=== PATIENT | male | born 1970 | race Hispanic/Latino ===

== ENCOUNTER → 2017-12-06 | Outpatient (CLI) | payer MEDICARE, OTHER | END | disposition home or self-care (01) | LOC: GMAM 15:14 | PROVIDERS: ATTEND Family Medicine | DX: Z12.5 Encounter for screening for malignant neoplasm of prostate (principal) ==

== ENCOUNTER → 2017-12-11 | Outpatient (CLI) | payer MEDICARE, OTHER | END | disposition home or self-care (01) | LOC: GMAM 12:17 | PROVIDERS: ATTEND Family Medicine | DX: R53.83 Other fatigue (principal) ==

== ENCOUNTER → 2018-04-08 | Outpatient (CLI) | payer MEDICARE, OTHER | LOC: GMAM 11:30 | PROVIDERS: ATTEND Family Medicine | DX: E29.1 Testicular hypofunction (principal) ==

== ENCOUNTER → 2018-06-17 | Outpatient (CLI) | payer MEDICARE, OTHER | LOC: GMAM 16:43 | PROVIDERS: ATTEND Family Medicine | DX: R10.9 Unspecified abdominal pain (principal) ==

== ENCOUNTER → 2018-06-19 | Outpatient (CLI) | payer MEDICARE, OTHER ==
--- NOTE | 2018-06-19 11:42 | CT ---
EXAM DESCRIPTION: Abdomen/Pelvis w/wo Contrast: Computed Tomography. CLINICAL HISTORY: ABD PAIN. Nausea and hernia. COMPARISON: Ultrasound gallbladder on the same visit. TECHNIQUE: Spiral-axial scans at 5 x 5 mm intervals through the abdomen and pelvis before and after standard dose nonionic IV contrast. No oral contrast. Coronal and sagittal 2.0 mm reconstructions. 5 mm Delayed helical-axial scans, liver through the pubic symphysis. No adverse reactions. Total Exam DLP 3363.39 mGy - cm. This exam was performed according to our departmental CT dose-optimization program which includes automated exposure control, adjustment of the mA and/or kV according to patient size and/or use of iterative reconstruction technique; to reduce radiation dose to as low as reasonably achievable (ALARA). FINDINGS: Lung bases and pleura: Multiple bilateral fluffy groundglass densities which may be associated with the fissures and other septations. Possibly solid nodule in the left lower lobe. Liver, Stomach, Spleen, Adrenal Glands: Small hiatal hernia in the stomach with no distention. Other solid organs are negative. Pancreas, Gallbladder, Ducts: Gallbladder visualized. Duct and pancreas negative. Kidneys and Ureters: Unremarkable. Mesentery: Negative. Aorta: Minimal atherosclerotic calcification proximal common iliac arteries. Small Bowel: Unremarkable. Terminal Ileum/Cecum: Negative. Normal caliber of the appendix. Normal surrounding fatty density. Colon: Diffuse fecal material but no significant distention. Pelvic Organs: Prostate gland with minimal impression on the base of the urinary bladder. Borderline wall thickening. No free fluid. Spine and Bony Pelvis: Anterior osteophytes thoracic spine and at L3-4 and L4-5. Abdominal Wall/Back Soft Tissues: No inguinal hernia or abdominal wall hernia is visualized, but there is protrusion of fat anteriorly, abutting the midline raphe below the xiphoid process. IMPRESSION: 1. Anterior midline protrusion of abdominal fat posterior to the midline raphe, inferior to the xiphoid process. Does not contain bowel. 2. Small gastric hiatal hernia. 3. Multiple bilateral groundglass nodules in the lung bases with a solid nodule in the left lower lobe 5 to 6 mm diameter. Recommend follow-up chest and lung CT scan with IV contrast. 4. Borderline urinary bladder wall thickening with prostate gland abutting the base. Consider PSA serial measurements if not previously done. Electronically signed by: Martell Green MD 06/19/2018 11:40 AM CDT
--- NOTE | 2018-06-19 14:41 | US ---
EXAM DESCRIPTION: Gall Bladder: ULTRASOUND. CLINICAL HISTORY: ABD PAIN COMPARISON: CT scan of the abdomen and pelvis on this visit. TECHNIQUE: Transabdominal scanning: Santa-scale and Doppler modes. FINDINGS: Gallbladder: normal size, shape, echogenicity; no intraluminal stones or sludge. No fluid around the gallbladder. No wall thickening. 1.8 mm. Non-tender with transducer pressure. Common bile duct: caliber 4.2 mm within normal limits. Liver: Increased echogenicity; contour liver capsule smooth where seen. No fluid around the liver. Intrahepatic biliary ducts normal caliber. Doppler hepatopedal flow portal vein.. 8.2 mm diameter normal caliber. Long axis right lobe 15.2 cm. Pancreas: normal size and echogenicity. Duct not seen. 10.5 cm long axis right kidney. Normal cortical thickness and echogenicity. No hydronephrosis or perinephric fluid. 7 x 7 x 5 mm anechoic cyst near the renal pelvis. IMPRESSION: 1. Fatty infiltration/steatosis of the liver with normal ducts. No focal lesions. Normal vascularity. Smooth capsule with no ascites and normal size. 2. Gallbladder is unremarkable with no stones or sludge. No wall thickness or fluid around the wall. Nontender with transducer pressure. Normal caliber of the common bile duct. 3. Pancreas right kidney are unremarkable on ultrasound, except for a 7 mm cyst in the kidney. Electronically signed by: Martell Green MD 06/19/2018 2:40 PM CDT
== END ==
LOC: CT 09:00
PROVIDERS: ATTEND Family Medicine
DX: K44.9 Diaphragmatic hernia without obstruction or gangrene (principal); R91.8 Other nonspecific abnormal finding of lung field; K76.0 Fatty (change of) liver, not elsewhere classified; N28.1 Cyst of kidney, acquired; R10.9 Unspecified abdominal pain

== ENCOUNTER → 2018-07-03 | Outpatient (CLI) | payer MEDICARE, OTHER ==
--- NOTE | 2018-07-03 11:00 | MRI ---
EXAM DESCRIPTION: Cervical Spine: MRI. CLINICAL HISTORY: NECK PAIN COMPARISON: Cervical TECHNIQUE: Multiplanar MRI, multiple sequences, non-contrast High-field.. Minimal image degradation due to size of the body part. FINDINGS: C3-4: Minimal disc desiccation. No significant bulging. Canal and bilateral foramina are patent. Facets are negative. C4-5: Minimal disc desiccation and minimal disc space loss. Posterior broad-based 2 mm disc bulge. Bilateral moderate neural foraminal narrowing more on the right than left. Facets are unremarkable. C5-6: Minimal disc desiccation and minimal disc space loss. Tiny posterior bulge. Bilateral uncinate spurs. Right neural foraminal stenosis. Mild to moderate left neural foraminal narrowing. Mild canal narrowing. C6-7: Minimal disc desiccation. Disc space preserved. Right uncinate spur and mild neural foraminal narrowing. Left neuroforamen and canal patent. Normal signal in the remaining discs with no bulging. Disc spaces preserved. Canal and neural foramina are patent. Facets unremarkable. Spinal alignment is kyphotic C2- C6. No cord compression or cord edema. Atlantoaxial joint with minimal hypertrophy. Base of the cerebellar tonsils is at the level of the foramen magnum. Paravertebral soft tissues negative. Vertebral bodies are not compressed at any level. Normal marrow signal in the remaining vertebral bodies and the posterior elements. IMPRESSION: 1. C5-6 disc desiccation and small posterior bulge. Right neural foraminal stenosis. Correlate for right C6 radiculopathy. Canal is narrowed. 2. Bilateral moderate neural foraminal narrowing at C4-5 more on the right. Posterior broad-based disc bulge. 3. Right uncinate spur at C6-7 with mild neural foraminal narrowing. Electronically signed by: Martell Green MD 07/03/2018 10:59 AM CDT
--- NOTE | 2018-07-03 12:37 | CT ---
EXAM DESCRIPTION: Chest w/Contrast : Computed Tomography. CLINICAL HISTORY: NODULE, pulmonary. Abnormal findings in the lungs on previous CT scan of the abdomen.. COMPARISON: CT scan of abdomen and pelvis 06/19/2018. TECHNIQUE: Spiral-axial scans at 5 x 5 mm intervals through the lungs and thorax with IV contrast. 2.5 x 5 mm lung algorithm axial reconstructions. 2.0 Mm reconstructions. No adverse reactions. Total Exam DLP: 891.03 mGy-cm. This exam was performed according to our departmental dose-optimization program which includes automated exposure control, adjustment of the mA and/or kV according to patient size and/or use of iterative reconstruction technique; to reduce radiation dose to as low as reasonably achievable (ALARA). Nodules or masses with mean diameter 10 mm or less are recorded, based upon measurements in all 3 axes. FINDINGS: Lungs and airways: Nonspecific groundglass densities, and nodules less than 3 mm in diameter are noted abutting the inferior right major fissure in the right middle lobe. Patchy groundglass infiltrate, widest diameter 3 cm, in the lateral right lower lobe near the base abutting the posterior right hemidiaphragm pleura. Multiple solid solid and groundglass nodules are visible on the lung window axial sequence 4, from image 84 inferior to image 107. In the right lower lobe in subpleural location ranging in size from 3 mm to 8 mm. In the left lower lobe, subpleural groundglass infiltrate 4 mm on lung window axial sequence 4, image 98. Slightly more superior is a solid nodule measuring 7 mm on image 94. Smaller subpleural groundglass densities also seen in the right upper lobe and in the inferior lingula. Groundglass nodule abutting the pleura in the lower lingula on image 71, measuring 6 mm. Eloise and mediastinum: Upper mediastinum unremarkable at the thoracic inlet but at the level of the brachiocephalic vessels, multiple mediastinal nodes are present. Pretracheal nodes less than 1 cm. Short axis azygous node 1.3 cm. Short axis AP window node 1.1 cm with multiple other smaller nodes. 1 cm node superior to the left main bronchus. Cluster of nodes in the superior right hilum, short axes 1.7 cm. Inferior to the right upper lobe bronchus, 1.3 cm. Superior and lateral to the bronchus intermedius, short axis node 1.6 cm with crenulated margins. Right hilar lymph node abutting the right lower lobe bronchus 1.3 cm short axis. Short axis subcarinal node 1.3 cm.: Largest lymph nodes in the left hilum similar to the right. Great vessels: No atherosclerotic calcifications or aneurysms. Soft tissues of the neck base, chest wall, and axilla. No soft tissue masses or enlarged lymph nodes. Thyroid gland with uniform enhancement. Upper abdomen. Protrusion of abdominal fat in the midline just below the xiphoid process not containing bowel. Small gastric hiatal hernia. Included peritoneal space unremarkable. Stable since the prior study. Osseous structures: Narrowing of some of the thoracic foramina. Anterior spurs at some disc spaces. Minimal arthrosis bilateral glenohumeral joints. No blastic or lytic lesions. IMPRESSION: 1. Patchy groundglass densities and nodules in the bilateral lung bases more on the right. Small semisolid nodules on the right. Solid nodule with mean diameter 7 mm in the left lower lobe and groundglass nodule in the inferior lingula measuring 6 mm. Diffuse mediastinal and bilateral hilar adenopathy. No abdominal or pelvic adenopathy on recent CT scan. Differential includes atypical bacterial pneumonia, fungal pneumonia, sarcoidosis, metastasis, viral infection, or non-TB mycobacteria, or primary TB. No dominant pulmonary mass. Less likely lymphoma with no involvement of the neck or abdomen. Consider [address] follow-up with IV contrast, and/or PET scan. Pulmonology consult, sputum cultures, and bronchoscopic guided transbronchial biopsy. Electronically signed by: Martell Green MD 07/03/2018 12:35 PM CDT
== END ==
LOC: MRI 09:00
PROVIDERS: ATTEND Family Medicine
DX: M54.2 Cervicalgia (principal); R91.1 Solitary pulmonary nodule; M50.321 Other cervical disc degeneration at C4-C5 level; M50.322 Other cervical disc degeneration at C5-C6 level

== ENCOUNTER → 2018-07-09 | Outpatient (CLI) | payer MEDICARE, OTHER | LOC: GMAM 14:30 | PROVIDERS: ATTEND Family Medicine | DX: R94.5 Abnormal results of liver function studies (principal); K76.0 Fatty (change of) liver, not elsewhere classified; R10.9 Unspecified abdominal pain ==

== ENCOUNTER → 2018-07-12 | Outpatient (CLI) | payer MEDICARE, OTHER ==
--- NOTE | 2018-07-12 12:45 | MRI ---
EXAM DESCRIPTION: Brain w/o Contrast: MRI. CLINICAL HISTORY: HEADACHE COMPARISON: None. TECHNIQUE: Multiplanar, high-field MRI unit, multiple diffusion sequences, multiple conventional sequences without contrast. FINDINGS: Normal FLAIR and T2-weighted signal in the periventricular white matter and jensen-white matter junctions of the cerebral hemispheres. . No hemorrhage, no cerebral edema, no diffusion restriction.. Normal signal in the bilateral basal ganglia. Normal signal in the brainstem and cerebellar hemispheres. No hemorrhage, no cerebral edema, no diffusion restriction. Concordance of the diffusion and non-diffusion sequences with no diffusion restriction. Cortical sulci, ventricles, and other CSF spaces, and the subdural spaces are normally configured. No effacement or displacement. No midline shift. No extra-axial hemorrhage. Normal flow signal void in the major vessels of the [place] Koth[place], and the venous sinuses. IACs are symmetric bilaterally. Normal signal in the bilateral mastoid air cells. No mass effect in the bilateral cerebellopontine angles. Pituitary gland occupies most of the sella. Base of the cerebellar tonsils is at the level of the foramen magnum. Multiple air cells in the paranasal sinuses with mucoperiosteal thickening. Possible air-fluid level in the gravity dependent posterior left maxillary antrum. 2 cm polyp versus mucosal retention cyst in the base of the right antrum. Anterior left sphenoid or posterior left ethmoid air cell containing fluid and abutting the left optic foramen.. The bony calvarium is intact. IMPRESSION: 1. Normal noncontrast MRI scan of the brain with no intra-axial or axial hemorrhage, no cerebral edema. 2. Normal noncontrast MRI diffusion study with no evidence of acute or subacute infarction. No diffusion restriction. 3. Paranasal chronic sinusitis. One cell abutting the left optic foramen contains fluid/inflammation. Possible acute sinusitis gravity dependent left maxillary antrum. 2 cm polyp or cyst right maxillary antrum. Electronically signed by: Martell Green MD 07/12/2018 12:44 PM [employer]
== END ==
LOC: MRI 09:00
PROVIDERS: ATTEND Family Medicine
DX: R51 Headache (principal); J32.9 Chronic sinusitis, unspecified

== ENCOUNTER → 2019-02-03 | Outpatient (CLI) | payer MEDICARE, OTHER | LOC: GMAM 11:42 | PROVIDERS: ATTEND Family Medicine | DX: Z12.5 Encounter for screening for malignant neoplasm of prostate (principal) ==

== ENCOUNTER → 2019-02-05 | Outpatient (CLI) | payer MEDICARE, OTHER | LOC: GMAM 14:35 | PROVIDERS: ATTEND Family Medicine | DX: M79.10 Myalgia, unspecified site (principal); E53.8 Deficiency of other specified B group vitamins; E55.9 Vitamin D deficiency, unspecified ==